=== PATIENT | male | born 1970 | race Caucasian/White ===

== ENCOUNTER 2020-11-28 06:10 | Emergency (ER) | payer OTHER ==
[~2020-11-28] VITALS: Ht 175.3 cm; Wt 100.4 kg
[2020-11-28 06:22] VITALS: Ht 175.3 cm; Wt 100.4 kg
[2020-11-28] MEDS ORDERED: MOT600 PO (09:21)
[2020-11-28] MEDS ORDERED: AUGMENTIN 875-1 EACH PO (09:21)
[2020-11-28] MEDS ORDERED: MUPIROCIN1 GM TOP (09:21)
[2020-11-28] MEDS ORDERED: ACETAMINOPHEN-H1 TA1 PO (09:25)
[2020-11-28 11:13] VITALS: BP 135/66
== END 2020-11-28 11:21 | disposition home or self-care (01) ==
LOC: ED 06:10
DX: S61.213A Laceration without foreign body of left middle finger without damage to nail, initial encounter (principal); V29.9XXA Motorcycle rider (driver) (passenger) injured in unspecified traffic accident, initial encounter; Y93.I9 Activity, other involving external motion; Y92.413 State road as the place of occurrence of the external cause; Y99.8 Other external cause status
CPT/HCPCS: 90715; J1885; J2001